=== PATIENT | female | born 1985 | race American Indian/Alaskan Native ===

== ENCOUNTER 2018-02-07 12:37 | Emergency (ER) | payer SELFPAY ==
[2018-02-07 13:00] VITALS: BP 120/77
[2018-02-07] MEDS ORDERED: MOTRIN PO ONE (13:48)
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
--- NOTE | 2018-02-07 14:50 | XRay Report ---
LEFT RIBS, 3 VIEWS: History: pain. Routine views of the rib cage demonstrate normal mineralization with no significant contour abnormalities, fractures or destructive lesions. Single view of the chest suggests mild prominence of the right hilum. I cannot exclude adenopathy. Further evaluation with CT with contrast should be considered. Please correlate with the image. IMPRESSION: Unremarkable left rib series. Slightly abnormal appearance of the right hilum. See above.
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
[2018-02-07 18:58] LABS: BUN/Creatinine Ratio 20; Blood Urea Nitrogen 12 mg/dL (7-17); Calcium 8.9 mg/dL (8.4-10.2); Hemolysis Index 95
--- NOTE | 2018-02-07 19:52 | Cat Scan Report ---
FINAL REPORT PROCEDURE: CT CHEST W CON TECHNIQUE: Computerized axial tomography of the chest was performed during the IV injection of iodinated nonionic contrast. HISTORY: right rib pain, CXR report recommend f/u with CT COMPARISON: No prior studies are available for comparison. TECHNICAL QUALITY: Satisfactory. FINDINGS: Pulmonary outflow tract, right and left main pulmonary arteries: No abnormality is seen. Pericardium: No evidence of pericardial effusion. Thoracic aorta: No evidence of aneurysmal dilatation or dissection. Coronary arteries: Are unremarkable. Mediastinum and hilar regions: Nonspecific subcentimeter lymph nodes are visualized. No pathologically enlarged lymph nodes or masses are identified. There are several enlarged lymph nodes in the right hilum containing dense coarse calcifications. The appearance suggest prior granulomatous disease. Lung [place]: There are 2 densely calcified small nodules in the right lower lobe which appear to represent calcified granulomas. 1 measures 5.5 millimeters the other approximately 3.3 millimeters. Upper abdomen: No acute or focal abnormality is seeen. Other: No acute bony abnormalities are identified. IMPRESSION: Mildly enlarged partially calcified lymph nodes seen in the right hilum consistent with prior granulomatous disease related to a calcified granuloma in the right lower lobe. No other abnormalities are seen.
== END 2018-02-07 20:31 | disposition home or self-care (01) ==
LOC: ED 12:37
DX: S56.413A Strain of extensor muscle, fascia and tendon of right middle finger at forearm level, initial encounter (principal); J84.10 Pulmonary fibrosis, unspecified; Y04.8XXA Assault by other bodily force, initial encounter; Y93.89 Activity, other specified; Y92.89 Other specified places as the place of occurrence of the external cause; Y99.8 Other external cause status
CPT/HCPCS: 36415; 71101; 71260; 73620; 80048; 84703; 99284; Q9967